=== PATIENT | male | born 1955 | race Caucasian/White ===

== ENCOUNTER 2024-07-21 09:05 | Day surgery (SDC) | payer MEDICARE ==
[~2024-07-21] VITALS: Ht 188 cm; Wt 118.2 kg
[~2024-07-21 09:05] MED LIST: CEFAZOLIN SODIUM 2 GM/20 ML SYR IV SCH; IBLOOD GLUCOSE TEST STRIP 1 EA TEST VI PRN; LACTATED RINGER'S 1,000 ML IV SCH; LIDOCAINE HCL 1% 5 ML SDV INJ ONE; MIDAZOLAM HCL 5 MG/5 ML VIAL IV PRN; fentaNYL citrate 100 MCG/2 ML VIAL IV PRN
[2024-07-21 09:23] VITALS: BP 126/62
[2024-07-21] MEDS ORDERED: METOPROLOL SUC100 MG PO (09:25)
[2024-07-21] MEDS ORDERED: VALSARTAN160 MG PO (09:25)
[2024-07-21] MEDS ORDERED: PRAVASTATIN SOD80 MG PO (09:26)
[2024-07-21] MEDS ORDERED: METFORMIN HCL500 M1 PO (09:26)
[2024-07-21] MEDS ORDERED: TRAZODONE HCL50 MG PO (09:26)
[2024-07-21] MEDS ORDERED: OMEPRAZOLE40 MG PO (09:26)
[2024-07-21] MEDS ORDERED: NIFEDIPINE ER90 MG PO (09:27)
[2024-07-21] MEDS ORDERED: VITAMIN B12500 MCG PO (09:28)
[2024-07-21] MEDS ORDERED: IRON 100-VITAM1 EACH PO (09:29)
[2024-07-21] MEDS ORDERED: VITAMIN D31 ML MISC (09:30)
[2024-07-21] MEDS ORDERED: ASPIRIN81 MG PO (09:30)
[2024-07-21] MEDS ORDERED: MIDAZOLAM HCL 5 MG/5 ML VIAL ONE ×2 (10:20→11:19)
[2024-07-21] MEDS ORDERED: fentaNYL citrate 100 MCG/2 ML VIAL ONE (10:21)
--- NOTE | 2024-07-21 11:47 | NUR ---
07/21/24 Elayne Vazquez OXYGEN SATURATION REMAINS 96% ON 3L VIA NC. OXYGEN IS DISCONTINUED AT THIS TIME.
[2024-07-21 12:24] VITALS: BP 121/70
--- NOTE | 2024-07-23 07:57 | OR ---
[facility] [address], [place] [address] Signed DATE OF OPERATION: 07/21/2024 SURGEON: Lakhwinder Kilgore MD PREOPERATIVE DIAGNOSIS: History of polyps three years ago, [place], [place]. POSTOPERATIVE DIAGNOSIS: Polyp proximal descending colon. PROCEDURE: Total colonoscopy with cold morcellation polypectomy x1. ANESTHESIA: Intravenous sedation fentanyl 100 mcg, Versed 12 mg. INDICATION: This 68-year-old white man is a patient of Flash Palomino and referred for surveillance colonoscopy. He underwent colonoscopy in [place], [place] approximately three years ago. At that time, he was noted to have at least one polyp and was recommend to have repeat colonoscopy in three years. Has no current symptoms of bleeding, diarrhea, or constipation and no family history of colon cancer. He understands the risk of colonoscopy including, not limited to bleeding, infection, and perforation and wished to proceed. FINDINGS: The prep was good. Complete intubation of the cecum was not forthcoming despite many methods used to do so, though I do believe it was visualized reasonably well otherwise. There was a small polyp of the proximal left colon which was excised with cold morcellation technique. The remaining colon was normal. DESCRIPTION OF PROCEDURE: The patient was brought to the endoscopy suite and placed in lateral decubitus position, given intravenous sedation to the point of slurred speech and nystagmus. Digital rectal examination was normal. An Olympus video colonoscope was passed in the rectum and manipulated throughout the colon ultimately passed the hepatic flexure to the right colon. Various maneuvers were used to fully intubate the cecum, which were not initially forthcoming. Pull up technique with biopsy forceps was only partially effective . Abdominal wall Electronically Signed By: LAKHWINDER KILGORE MD 07/23/24 0757 PATIENT NAME: RENEA THAO OPERATIVE REPORT DATE OF : 55 REPORT #: [id number] PHYSICIAN: LAKHWINDER KILGORE MD PCP: FLASH PALOMINO PA-C REPORT IS CONFIDENTIAL AND NOT TO BE RELEASED WITHOUT AUTHORIZATION [facility] [address], [place] [address] Signed stabilization by assisting nurse was also not completely effective. He was placed in the supine position and similar technique undertaken passing the scope to a point where the cecum could be visualized though not fully intubated despite efforts to do so. A biopsy forceps was used to elevate the mucosa in the region of the ileocecal valve, showing no sign of abnormality. Scope was then withdrawn and examination throughout showed no sign of abnormality into the proximal descending colon where a linear possibly hyperplastic polyp was noted. This was excised with cold morcellation technique. Further withdrawal showed no other abnormality. Retroflexed view was normal. Scope was removed. The patient was taken to the recovery room in good condition. CONCLUDING DIAGNOSIS: Polyps x1, less than 1 cm. PLAN: Recommend repeat colonoscopy in 7 to 10 years based on findings and current recommendations and guidelines. He will return to the ongoing care of Flash Palomino or her office as she is in transition herself. MD GAMAL Varghese/DWIGHT /[id number] cc: Flash Palomino Copies: ~ Electronically Signed By: LAKHWINDER KILGORE MD 07/23/24 0757 PATIENT NAME: RENEA THAO OPERATIVE REPORT DATE OF : 55 REPORT #: [id number] PHYSICIAN: LAKHWINDER KILGORE MD PCP: FLASH PALOMINO PA-C REPORT IS CONFIDENTIAL AND NOT TO BE RELEASED WITHOUT AUTHORIZATION
--- NOTE | 2024-07-24 14:42 | PATH ---
[facility] [address], [place] [address] Signed SPECIMEN(S): A DESCENDING COLON POLYP SPECIMEN SOURCE: A. DESCENDING COLON POLYP CLINICAL HISTORY: History of polyps, post colon polyp FINAL PATHOLOGIC DIAGNOSIS: Descending colon polyp: - Tubular adenoma (one fragment). - Benign polypoid colonic mucosa with slight hyperplastic features (two fragments). JVR:[facility] MICROSCOPIC EXAMINATION: Histologic sections of all submitted blocks are examined by light microscopy. These findings, together with the gross examination, support the pathologic diagnosis. GROSS DESCRIPTION: The specimen, labeled and designated "Karena Stuart, descending colon polyp," is received in formalin and consists of eight mi soft tissue fragments, ranging from 0.1-0.4 cm. Entirely submitted in (A1). AB (under the direct supervision of a pathologist) The Gross Description was prepared using a voice recognition system. The report was reviewed for accuracy; however, sound-alike word errors, addition and/or deletions may occur. If there is any question about this report, please contact Client Services. PERFORMING LABORATORY: Technical component was performed by [facility], [address] [place] [id number] (CLIA# [id number]). Professional interpretation was performed by [facility] - [facility], [address] [place] [id number] (CLIA#: [id number]). Diagnostician: Bebeto Wiggins MD Pathologist Electronically Signed 07/24/2024 PATIENT NAME: RENEA STUART PATHOLOGY DATE OF : 55 REPORT #: [id number] PHYSICIAN: TERE MILLER PCP: FLASH PALOMINO PA-C REPORT IS CONFIDENTIAL AND NOT TO BE RELEASED WITHOUT AUTHORIZATION [address] [place], [place] [address] Signed Copies: ~ PATIENT NAME: RENEA STUART PATHOLOGY DATE OF : 55 REPORT #: [id number] PHYSICIAN: TERE MILLER PCP: FLASH PALOMINO PA-C REPORT IS CONFIDENTIAL AND NOT TO BE RELEASED WITHOUT AUTHORIZATION
== END 2024-07-21 12:28 | disposition home or self-care (01) ==
LOC: DS 09:05
PROVIDERS: ATTEND Surgery
PROC: 0DBG8ZZ Excision of Left Large Intestine, Via Natural or Artificial Opening Endoscopic (ICD-10-PCS; principal; 2024-07-21 10:00)
DX: Z12.11 Encounter for screening for malignant neoplasm of colon (principal); D12.4 Benign neoplasm of descending colon; E66.01 Morbid (severe) obesity due to excess calories; G47.33 Obstructive sleep apnea (adult) (pediatric); I10 Essential (primary) hypertension; Z96.653 Presence of artificial knee joint, bilateral; Z79.84 Long term (current) use of oral hypoglycemic drugs; Z79.899 Other long term (current) drug therapy
CPT/HCPCS: 88305; 99153; G0500; J0690; J2250; J3010; J7121